=== PATIENT | female | born 1995 | race Caucasian/White ===

== ENCOUNTER 2017-08-23 20:07 | Inpatient (IN) ==
[2017-08-23] MEDS ORDERED: BRETHINE SUBQ PRN (21:24)
[2017-08-23] MEDS ORDERED: PEPCID IV PRN (21:24)
[2017-08-23] MEDS ORDERED: ZOFRAN IV PRN (21:24)
[2017-08-23] MEDS ORDERED: PEPCID PO PRN (21:24)
[2017-08-23] MEDS ORDERED: AMBIEN PO PRN (21:24)
[2017-08-23] MEDS ORDERED: TYLENOL PO PRN (21:24)
[2017-08-23] MEDS ORDERED: KEFZOL 1 GM/D5W 1 GM/50 ML IVPB IV PRN (21:24)
[2017-08-23] MEDS ORDERED: LR 1,000 ML IV ONE (21:24)
[2017-08-23] MEDS ORDERED: STADOL IV PRN ×3 (21:24)
[2017-08-23 21:45] LABS: URINE SOURCE VOIDED
[2017-08-23 21:50] LABS: BILIRUBIN URINE NEGATIVE (NEGATIVE); BLOOD URINE NEGATIVE (NEGATIVE); CLARITY CLEAR (CLEAR); COLOR YELLOW; GLUCOSE URINE NEGATIVE (NEGATIVE); LEUKOCYTES URINE 2+ (NEGATIVE); NITRITE URINE NEGATIVE (NEGATIVE); PROTEIN URINE TRACE mg/dL (NEGATIVE); UROBILINOGEN URINE NORMAL
[2017-08-23 21:57] LABS: UR AMPHETAMINES QUAL NONE DETECTED (NONE DETECT); UR BARBITUATES QUAL NONE DETECTED (NONE DETECT); UR BENZODIAZEPIN QUAL NONE DETECTED (NONE DETECT); UR CANNABINOIDS QUAL NONE DETECTED (NONE DETECT); UR COCAINE QUAL NONE DETECTED (NONE DETECT); UR MDMA QUAL NONE DETECTED (NONE DETECT); UR METHADONE QUAL NONE DETECTED (NONE DETECT); UR METHAMPHETAMINE QUAL NONE DETECTED (NONE DETECT); UR OPIATES QUAL NONE DETECTED (NONE DETECT); UR OXYCODONE QUAL NONE DETECTED (NONE DETECT); UR PCP QUAL NONE DETECTED (NONE DETECT); UR TCA QUAL NONE DETECTED (NONE DETECT)
[2017-08-23 22:37] LABS: MANUAL DIFF NEEDED? NO
[2017-08-23 22:40] LABS: BASO% 0.1 % (0.0-0.8); EOS# 0.15 X1000 (0.0-0.7); EOS% 1.4 % (0.0-10.0); HEMATOCRIT 34.3 % (37.0-47.0); HEMOGLOBIN 11.4 g/dL (12.0-16.0); IMM GRAN# 0.03 X1000 (0.0-0.04); IMM GRAN% 0.3 % (0.0-0.5); LYMPH% 27.7 % (20.5-51.1); MCH 29.4 PG (27-31); MCHC 33.2 g/dL (33-37); MCV 88.4 FL (81-99); MONO# 0.88 X1000 (0.11-0.59); MONO% 8.4 % (1.7-9.3); MPV 12.7 FL (7.4-10.4); NEUT% 62.1 % (42.2-75.2); PLT 215 X1000 (130-400); RBC 3.88 XMIL (4.2-5.4)
[2017-08-23] MEDS ORDERED: CYTOTEC PO ONE (23:00)
[2017-08-24] MEDS ORDERED: CYTOTEC PO SCH (03:00)
[2017-08-24] MEDS ORDERED: PITOCIN 30 UNITS/LR 30 UNITS/500 ML IV.SOLN IV SCH (07:00)
[2017-08-24] MEDS ORDERED: MINERAL OIL ONE (07:10)
[2017-08-24] MEDS ORDERED: XYLOCAINE-MPF 1% INJ ONE (07:13)
[2017-08-24] MEDS ORDERED: FENTANYL-BUPIV-NS 2 MCG-0.1% 200 ML EPIDURAL PRN (07:38)
[2017-08-24] MEDS: LR 1,000 ML IV SCH ×2 (09:30→12:00)
[2017-08-24] MEDS: MARCAINE 0.25% PF INJ PRN ×2 (10:03→10:08)
[2017-08-24] MEDS ORDERED: PERI MEDS (DERMOPLAST/NUPERCAINAL/TUCKS) MISC PRN (18:55)
[2017-08-24] MEDS ORDERED: PITOCIN IM PRN (18:55)
[2017-08-24] MEDS ORDERED: BENADRYL IV PRN (18:55)
[2017-08-24] MEDS ORDERED: PITOCIN 30 UNITS/LR 30 UNITS/500 ML IV.SOLN IV ONE (18:55)
[2017-08-24] MEDS ORDERED: BOOSTRIX VACCINE IM ONE (18:55)
[2017-08-24] MEDS ORDERED: PITOCIN 20 UNITS/LR 20 UNITS/1,000 ML IV.SOLN IV SCH (18:55)
[2017-08-24] MEDS ORDERED: HYDROXYZINE PO PRN (18:55)
[2017-08-24] MEDS ORDERED: NORCO-5 PO PRN (18:55)
[2017-08-24] MEDS ORDERED: XYLOCAINE-MPF 1% INJ PRN (18:55)
[2017-08-24] MEDS ORDERED: AMBIEN PO PRN (18:55)
[2017-08-24] MEDS ORDERED: MINERAL OIL PO PRN (18:55)
[2017-08-24] MEDS ORDERED: BENADRYL PO PRN (18:55)
[2017-08-24] MEDS ORDERED: M-M-R II VACCINE SUBQ ONE (18:55)
[2017-08-24] MEDS ORDERED: HYDROXYZINE IM PRN (18:55)
[2017-08-24] MEDS ORDERED: CYTOTEC PO PRN (18:55)
[2017-08-24] MEDS: PERICOLACE PO SCH (22:16)
[2017-08-24] MEDS: MOTRIN PO PRN (23:40)
--- NOTE | 2017-08-25 03:50 | OPERATIVE NOTE ---
PROCEDURE DATE: 08/24/2017 The patient underwent sterile controlled spontaneous vaginal delivery of a viable male infant weighing 6 pounds, with Apgars of 8 and 9. Loose nuchal reduced x1 at the perineum. No dystocia. Cord doubly clamped and cut. Infant handed off to the waiting pediatric staff. Placenta delivered spontaneously and intact. Uterus firm with Pitocin and massage. Uterus cervix and vagina explored. A supraurethral laceration noted and repaired with 3-0 chromic and hemostatic. COMPLICATIONS: None. ESTIMATED BLOOD LOSS: 200 mL. cc: Charisse Chacon MD
[2017-08-25 05:22] LABS: HEMATOCRIT 30.4 % (37.0-47.0); HEMOGLOBIN 9.9 g/dL (12.0-16.0); MCH 28.7 PG (27-31); MCHC 32.6 g/dL (33-37); MCV 88.1 FL (81-99); MPV 12.5 FL (7.4-10.4); RBC 3.45 XMIL (4.2-5.4)
[2017-08-25] MEDS ORDERED: FLUZONE QUAD 2017-2018 SYRINGE IM ONE (09:45)
[2017-08-25] MEDS: MOTRIN PO PRN ×2 (14:05→21:41)
[2017-08-25] MEDS: NORCO-10 PO PRN ×2 (14:06→21:41)
[2017-08-25] MEDS: PERICOLACE PO SCH (20:15)
[2017-08-26] MEDS: NORCO-10 PO PRN ×3 (03:48→18:04)
[2017-08-26] MEDS: MOTRIN PO PRN (12:32)
[2017-08-26 13:59] LABS: AMYLASE 33 U/L (20-200); LIPASE 24 U/L (13-60)
[2017-08-26] MEDS: PERICOLACE PO SCH (20:07)
[2017-08-26] MEDS ORDERED: DEMEROL PO ONE (20:36)
[2017-08-26] MEDS ORDERED: PHENERGAN PO ONE (20:38)
[2017-08-26] MEDS ORDERED: PERCOCET-5 PO PRN (20:39)
[2017-08-27] MEDS: MOTRIN PO PRN (07:11)
[2017-08-27] MEDS: PERCOCET-10 PO PRN ×2 (07:11→12:22)
[2017-08-27 08:08] VITALS: BP 135/74
== END 2017-08-27 16:00 | disposition home or self-care (01) ==
LOC: P.LD 20:07 → P.WC 08-24 21:44
PROVIDERS: ADMIT Obstetrics & Gynecology; ATTEND Obstetrics & Gynecology